=== PATIENT | female | born 1955 | race Caucasian/White ===

== ENCOUNTER 2017-11-13 19:16 | Emergency (ER) | payer OTHER ==
[2017-11-13] MEDS ORDERED: MOTRIN 600 MG PO ONE (19:56)
[2017-11-13 20:03] VITALS: PULSE 68
--- NOTE | 2017-11-13 20:11 | ERPHSYRPT ---
- History of Present Illness Time Seen by Provider: 11/13/17 19:40 Source: patient Exam Limitations: clinical condition Physician History: PATIENT STATES SHE SLIPPED ONTO FLOOR CONTAINING SODA IN STORE, FELL TO FLOOR SUSTAINING PAIN BEHIND HER LEFT HIP. DENIES HEAD, NECK OR BACK INJURY, LOSS OF CONSCIOUSNESS. HAS PAIN RADIATING DOWN FROM BACK OF LEFT HIP TO KNEE. Occurred: just prior to arrival Reason for Fall: slipped Injuries/Pain Location: pelvis, lower extremity Loss of Consciousness: no loss of consciousness Quality: throbbing Severity of Pain-Max: moderate Severity of Pain-Current: moderate Modifying Factors: Improves With: movement Associated Symptoms (Fall): other (PAIN UPON WEIGHT BEARING) Allergies/Adverse Reactions: acetaminophen [From Percocet] Allergy (Severe, Verified 11/13/17 20:08) Nausea and Vomiting meperidine [From Demerol] Allergy (Severe, Verified 11/13/17 20:08) Nausea and Vomiting oxycodone [From Percocet] Allergy (Severe, Verified 11/13/17 20:08) Nausea and Vomiting Home Medications: Amlodipine Besylate 5 mg [Norvasc 5 mg] 5 mg PO DAILY 11/13/17 [History] Anastrozole 1 mg PO 11/13/17 [History] Budesonide/Formoterol Fumarate [Symbicort 160-4.5 Mcg Inhaler] 10.2 gm IH [History] Loratadine 10 mg [Claritin 10 mg] 10 mg PO DAILY 11/13/17 [History] Meloxicam 15 mg [Meloxicam 15 MG] 15 mg PO DAILY 11/13/17 [History] Omeprazole 20 MG [Prilosec 20 mg] 40 mg PO DAILY 11/13/17 [History] - Review of Systems Constitutional: No Fever, No Chills Eyes: No Symptoms Ears, Nose, & Throat: No Symptoms Respiratory: No Cough, No Dyspnea Cardiac: No Chest Pain, No Edema, No Syncope Abdominal/Gastrointestinal: No Abdominal Pain, No Nausea, No Vomiting, No Diarrhea Genitourinary Symptoms: No Dysuria Musculoskeletal: Injury, Joint Pain, No Back Pain, No Neck Pain Skin: No Rash Neurological: No Dizziness, No Focal Weakness, No Sensory Changes Psychological: No Symptoms Endocrine: No Symptoms All Other Systems: Reviewed and Negative - Nursing Vital Signs Nursing Vital Signs: Initial Vital Signs Temperature 98.8 F 11/13/17 19:21 Pulse Rate 92 H 11/13/17 19:21 Respiratory Rate 18 11/13/17 19:21 Blood Pressure 129/58 11/13/17 19:21 O2 Sat by Pulse Oximetry 95 11/13/17 19:21 Pain Scale Pain Intensity 5 - Lambert Coma Score Best Eye Response (Lambert): (4) open spontaneously Best Verbal Response (Lambert): (5) oriented Best Motor Response ([place]): (6) obeys commands [place] Total: 15 - Physical Exam Respiratory/Chest Exam: normal breath sounds, No chest tenderness, No respiratory distress Cardiovascular Exam: normal heart sounds, regular rate/rhythm Gastrointestinal Exam: soft, No tenderness, No distention, No guarding, No ecchymosis Back Exam: normal inspection, other (THERE IS TENDERNESS LEFT SACROILIAC JOINT, NO ECCHYMOSIS NOTED) Extremity Exam: hip tenderness (LEFT GREATER TROCHANTER, NO SWELLING OR ECCHYMOSIS) Peripheral Pulses: carotid (R): 2+, carotid (L): 2+, femoral (R): 2+, femoral (L ): 2+, dorsalis-pedis (R): 2+, dorsalis-pedis (L): 2+ Neurologic Exam: alert, oriented x 3 Skin Exam: normal color SpO2 Interpretation: normal SpO2: 98 - Radiology Exams Left Femur X-ray Interpretation: Interpreted by me (NO FRACTURE OR DISLOCATION) Pelvis X-ray Interpretation: Interpreted by me, Negative, No Fracture Ordered Tests: Active Orders 24 hr Category Date Time Status FEMUR Stat Exams 11/13/17 19:57 Taken PELVIS (1 OR 2 VIEWS) Stat Exams 11/13/17 19:57 Taken Medication Summary Discontinued Medications Generic Name Dose Route Start Last Admin Trade Name Freq PRN Reason Stop Dose Admin Ibuprofen 600 mg 11/13/17 19:56 11/13/17 20:15 Motrin 600 Mg PO 11/13/17 19:57 600 mg STAT ONE Administration Ibuprofen Confirm 11/13/17 20:12 Motrin 600 Mg Administered 11/13/17 20:13 Dose 600 mg .ROUTE .STK-MED ONE - Progress Progress: pain not gone completely Progress Note: 11/13/17 20:16 ADMINISTERED MOTRIN 600MG ORALLY Counseled pt/family regarding: diagnosis, need for follow-up, rad results - Departure Time of Disposition: 21:10 Departure Disposition: Home Clinical Impression: LEFT HIP CONTUSION/STRAIN Condition: Stable Critical Care Time: No Referrals: DOCTOR,NO FAMILY [Primary Care Provider] - Additional Instructions: CONTINUE MOTRIN 600MG EVERY 6 HOURS NEEDED FOR PAIN DISCOMFORT. NORFLEX 100MG TWICE DAILY FOR MUSCLE SPASMS. CONSULT YOUR PRIMARY CARE PROVIDER FOR FOLLOWUP. Prescriptions: Ibuprofen 600 mg PO Q6HPRN PRN #20 tablet PRN Reason: Pain Orphenadrine Citrate 100 mg [Norflex 100 MG Tablet] 100 mg PO BID #14 tab
[2017-11-13] MEDS ORDERED: MOTRIN 600 MG ONE (20:12)
[2017-11-13] MEDS ORDERED: Norflex 100 MG Tablet PO ONE (21:02)
[2017-11-13 21:59] VITALS: BP 135/61; O2SAT 97
--- NOTE | 2017-11-13 22:08 | XRAY ---
Indication: Pain following fall. Comparison: None 2 views of the left femur obtained. No bony, articular, or soft tissue abnormalities.
--- NOTE | 2017-11-13 22:08 | XRAY ---
Indication: Pain following fall. Comparison: December 26, 2009. Single AP pelvis obtained. Again no bony, articular, or soft tissue abnormalities.
== END 2017-11-13 21:25 | disposition home or self-care (01) ==
LOC: ED 19:16
DX: S70.02XA Contusion of left hip, initial encounter (principal); S76.012A Strain of muscle, fascia and tendon of left hip, initial encounter; W01.0XXA Fall on same level from slipping, tripping and stumbling without subsequent striking against object, initial encounter; Y93.9 Activity, unspecified; Y92.512 Supermarket, store or market as the place of occurrence of the external cause
CPT/HCPCS: 72170; 73552; 99284; A9270-GY